=== PATIENT | female | born 1955 | race Caucasian/White ===

== ENCOUNTER → 2020-02-10 | Outpatient (CLI) | payer MEDICARE ==
[~2020-02-10] MED LIST: HYDROCODONE BIT1 T11 PO; KEFLEX500 MG PO; MOTRIN600 MG PO; NEXIUM20 MG PO; PREDNICOT20 MG PO; TOPAMAX25 M3 PO; ZOCOR10 MG PO; ZOCOR20 MG PO
[2020-02-10 12:45] LABS: BASO # 0.1 10*3/uL (0.0-0.1); BASO % 0.9 % (0.0-1.0); EOS # 0.4 10*3/uL (0.0-0.4); EOS % 4.5 % (1.0-4.0); LYMPH # 3.1 10*3/uL (1.3-4.4); LYMPH % 40.1 % (27.0-41.0); MEAN CELL VOLUME 96.6 fl (81.0-99.0); MEAN CORPUSCULAR HGB 32.4 pg (27.0-31.0); MEAN CORPUSCULAR HGB CONC 33.5 g/dl (33.0-37.0); MEAN PLATELET VOLUME 9.9 fl (9.6-12.3); MONO # 0.7 10*3/uL (0.1-1.0); MONO % 8.4 % (3.0-9.0); NEUT # 3.6 10*3/uL (2.3-7.9); PLATELET COUNT AUTOMATED 377 10*3/uL (130-400); RED BLOOD COUNT 4.14 10*6/uL (4.10-5.10); RED CELL DISTRI WIDTH 13.3 % (0-14.5); WHITE BLOOD COUNT 7.8 10*3/uL (4.8-10.8)
[2020-02-10 12:59] LABS: ALBUMIN 3.5 gm/dl (3.1-4.5); ALKALINE PHOSPHATASE 79 U/L (45-117); BUN 13 mg/dl (7-24); CHLORIDE 104 mmol/L (98-107); CREATININE 0.85 mg/dL (0.55-1.02); LIPASE 129 U/L (73-393); POTASSIUM 4.2 mmol/L (3.5-5.1); SGOT/AST 20 IU/L (3-35); SGPT/ALT 26 U/L (12-78); SODIUM 138 mmol/L (136-145); TOTAL PROTEIN 7.8 gm/dL (6.4-8.2)
== END | disposition home or self-care (01) ==
LOC: LAB 12:22
PROVIDERS: Nurse Practitioner Primary Care
DX: M89.8X1 Other specified disorders of bone, shoulder (principal); R19.4 Change in bowel habit; R07.9 Chest pain, unspecified; R14.0 Abdominal distension (gaseous); R10.9 Unspecified abdominal pain

== ENCOUNTER → 2020-02-23 | Outpatient (CLI) | payer MEDICARE | END | disposition home or self-care (01) | LOC: US 02-21 01:01 | DX: R14.0 Abdominal distension (gaseous) (principal); M89.8X1 Other specified disorders of bone, shoulder; R19.4 Change in bowel habit ==

== ENCOUNTER → 2023-03-11 | Outpatient (CLI) | payer MEDICARE | END | disposition home or self-care (01) | LOC: RAD 12:44 | PROVIDERS: ATTEND Family Medicine | DX: M47.812 Spondylosis without myelopathy or radiculopathy, cervical region (principal) ==